=== PATIENT | male | born 1960 | race Caucasian/White ===

== ENCOUNTER 2019-02-03 08:42 | Outpatient (CLI) | payer MEDICARE | END 2019-02-03 08:43 | disposition home or self-care (01) | LOC: C.PAT 08:42 | DX: Z80.0 Family history of malignant neoplasm of digestive organs (principal) ==

== ENCOUNTER 2019-02-06 08:33 | Day surgery (SDC) | payer MEDICARE ==
[2019-02-06 09:23] VITALS: BMI 35.0
[2019-02-06] MEDS ORDERED: Lactated Ringer's 500 ML IV ONE (10:23)
[2019-02-06] MEDS ORDERED: Midazolam 2 MG/2 ML VIAL ONE (10:25)
[2019-02-06] MEDS ORDERED: Propofol 10 mg/ml Inj (20 ML) ONE ×2 (10:25→11:07)
[2019-02-06] MEDS ORDERED: Lactated Ringer's 500 ML IV SCH (10:30)
[2019-02-06 11:29] VITALS: TEMP 98.5
[2019-02-06 12:26] VITALS: BP 158/89; PULSE 94; RESP 19; O2SAT 97
== END 2019-02-06 12:22 | disposition home or self-care (01) ==
LOC: C.ENDO 08:33
PROVIDERS: ATTEND Internal Medicine Gastroenterology
DX: K62.1 Rectal polyp (principal)
CPT/HCPCS: 45380; 82948; 88305; J2250; J2704; J7120